=== PATIENT | female | born 2000 | race Two or more races ===

== ENCOUNTER 2022-01-04 14:30 | Inpatient (IN) | payer OTHER ==
[~2022-01-04] VITALS: Ht 160 cm; Wt 63.5 kg
[2022-01-15] MEDS ORDERED: PRENATAL MULTI1 EAC4 PO (03:29)
== END 2022-01-18 19:21 | disposition home or self-care (01) | DRG 768 ==
LOC: LDR 01-15 20:25 → OB/GYN 01-15 20:25 → LDR 01-18 14:30 → OB/GYN 01-18 19:21
PROVIDERS: ADMIT Obstetrics & Gynecology; ATTEND Obstetrics & Gynecology
PROC: 4A1HXCZ Monitoring of Products of Conception, Cardiac Rate, External Approach (ICD-10-PCS; 2022-01-15)
PROC: 10E0XZZ Delivery of Products of Conception, External Approach (ICD-10-PCS; principal; 2022-01-16)
PROC: 0DQP0ZZ Repair Rectum, Open Approach (ICD-10-PCS; 2022-01-16)
PROC: 0W8NXZZ Division of Female Perineum, External Approach (ICD-10-PCS; 2022-01-16)
DX: O70.3 Fourth degree perineal laceration during delivery (principal); Z37.0 Single live birth; Z3A.39 39 weeks gestation of pregnancy; Z20.822 Contact with and (suspected) exposure to COVID-19